=== PATIENT | female | born 1965 | race Caucasian/White ===

== ENCOUNTER 2016-07-26 22:07 | Emergency (ER) | payer MEDICAID ==
[2014-05-23 13:11] VITALS: BMI 36.7
[~2016-07-26 22:07] MED LIST: ACCUPRIL10 MG PO; ACCUPRIL5 MG; AMARYL1 MG PO; CIPRO500 MG PO; ECOTRIN325 MG PO; FLAGYL500 MG PO; FLOVENT HFA 11012 GM INH; GLUCOPHAGE500 MG PO; GLUCOTROL 5 MG T5 MG PO; IMDUR30 MG PO; IPRAT-ALBUT 0.5-3 ML UPD; NEURONTIN600 MG PO; PHENERGAN25 M1 PO; PROAIR HFA8.5 GM INH; PROVENTIL HFA6.7 GM INH; REGLAN10 MG PO; TENORMIN50 MG PO; ULTRAM50 MG PO; VIBRAMYCIN 100100 MG PO
== END 2016-07-27 00:38 | disposition home or self-care (01) ==
LOC: D.ER 22:07
DX: S80.12XA Contusion of left lower leg, initial encounter (principal); W19.XXXA Unspecified fall, initial encounter; Y93.89 Activity, other specified; Y92.019 Unspecified place in single-family (private) house as the place of occurrence of the external cause; S93.402A Sprain of unspecified ligament of left ankle, initial encounter; J44.9 Chronic obstructive pulmonary disease, unspecified; I10 Essential (primary) hypertension; E83.42 Hypomagnesemia; E83.39 Other disorders of phosphorus metabolism; E11.9 Type 2 diabetes mellitus without complications; F17.200 Nicotine dependence, unspecified, uncomplicated

== ENCOUNTER → 2017-03-27 13:51 | Outpatient (CLI) | payer MEDICAID ==
[2014-05-23 13:11] VITALS: BMI 36.7
[2017-03-30 10:00] LABS: BASOPHILS 0.5 % (0-2); EOSINOPHILS 2.6 % (0-7); HEMATOCRIT 46.8 % (36.0-48.0); HEMOGLOBIN 15.4 g/dL (12-16); IMMATURE GRANULOCYTES 0.1 % (0-5); LYMPHOCYTES 36.5 % (15-50); MCH 29.7 pg (26.0-34.0); MCHC 32.9 g/dL (31.0-37.0); MCV 90.3 fL (80.0-100.0); MEAN PLATELET VOLUME 10.3 fL (7.4-10.4); NEUTROPHILS 52.3 % (40-80); PLATELET COUNT 241 10x3/uL (130-400); RBC 5.18 10x6/uL (4.00-5.40); RDW 13.7 % (11.5-14.5); WBC 8.7 10x3/uL (4.8-10.8)
[2017-03-30 10:07] LABS: CREATININE - URINE 93.2 mg/dL (30-125); PROTEIN - 24HR URINE 65 mg/24hr (0-149.1)
[2017-03-30 10:12] LABS: CALC OSMOLALITY 285 mosm/kg (275-300); CALCIUM 9.5 mg/dL (8.5-10.1); CARBON DIOXIDE 27.2 mmol/L (21.0-32.0); CHLORIDE - SERUM 102 mmol/L (98-107); CREATININE - SERUM 0.8 mg/dL (0.6-1.3); POTASSIUM - SERUM 3.7 mmol/L (3.5-5.1); SODIUM 140 mmol/L (136-145); UREA NITROGEN 15 mg/dL (7-18); eGFR NON AFRICAN AMERICAN 80 mL/min (90-120)
[2017-03-30 10:19] LABS: CREATININE - SERUM 0.8 mg/dL (0.6-1.3); CREATININE CLEARANCE 58 ml/min (78-116); GLUCOSE 198 mg/dL (74-106)
== END | disposition home or self-care (01) ==
LOC: D.LAB 10:00
PROVIDERS: Internal Medicine Nephrology
DX: N18.9 Chronic kidney disease, unspecified (principal); R80.9 Proteinuria, unspecified

== ENCOUNTER → 2018-03-29 13:37 | Outpatient (CLI) | payer MEDICAID ==
[2014-05-23 13:11] VITALS: BMI 36.7
[2018-03-29 14:15] LABS: BASOPHILS 0.3 % (0-2); EOSINOPHILS 0.8 % (0-7); IMMATURE GRANULOCYTES 0.4 % (0-5); LYMPHOCYTES 23.7 % (15-50); MCH 29.9 pg (26.0-34.0); MCV 87.9 fL (80.0-100.0); MEAN PLATELET VOLUME 10.8 fL (7.4-10.4); MONOCYTES 6.3 % (2-11); NEUTROPHILS 68.5 % (40-80); PLATELET COUNT 244 10x3/uL (130-400); RBC 5.35 10x6/uL (4.00-5.40); RDW 13.7 % (11.5-14.5); WBC 15.8 10x3/uL (4.8-10.8)
[2018-03-29 14:24] LABS: CALC OSMOLALITY 281 mosm/kg (275-300); CALCIUM 9.3 mg/dL (8.5-10.1); CHLORIDE - SERUM 103 mmol/L (98-107); CREATININE - SERUM 0.7 mg/dL (0.6-1.3); POTASSIUM - SERUM 3.7 mmol/L (3.5-5.1); SODIUM 141 mmol/L (136-145); UREA NITROGEN 12 mg/dL (7-18); eGFR NON AFRICAN AMERICAN > 90 mL/min (90-120)
[2018-03-29 14:25] LABS: GLUCOSE 119 mg/dL (74-106)
[2018-03-29 14:32] LABS: CREATININE - URINE 139.8 mg/dL (30-125); PRO/CRE RATIO URINE 0.3 mg/g; PROTEIN - URINE 39.2 mg/dL (0.0-11.9)
[2018-03-29 14:50] LABS: APPEARANCE CLOUDY (CLEAR); COLOR YELLOW (YELLOW); NITRITE POSITIVE (NEGATIVE)
[2018-03-29 14:51] LABS: BILIRUBIN NEGATIVE (NEGATIVE); GLUCOSE NEGATIVE (NEGATIVE); KETONE NEGATIVE (NEGATIVE); PROTEIN 1+ mg/dL (NEGATIVE); UROBILINOGEN NORMAL (NORMAL)
[2018-03-29 14:52] LABS: BACTERIA MANY /hpf (NONE SEEN); RED CELLS - URINE 0-5 /hpf (0-5)
[2018-03-29 16:23] LABS: ALKALINE PHOSPHATASE 102 U/L (46-116); ALT (SGPT) 66 U/L (10-68); PROTEIN - SERUM 8.6 g/dL (6.4-8.2)
== END | disposition home or self-care (01) ==
LOC: D.LAB 13:37
DX: N18.9 Chronic kidney disease, unspecified (principal); R80.9 Proteinuria, unspecified; I10 Essential (primary) hypertension

== ENCOUNTER 2018-05-22 20:07 | Inpatient (IN) | payer MEDICAID ==
[~2018-05-22] VITALS: Ht 165.1 cm; Wt 103.4 kg
--- NOTE | ~2018-05-22 | HEMODYNAMI ---
PATIENT:MOHIT LEIVA MEDICAL RECORD: [id number] : 63 LOCATION:[facility] D.[address] [id number] ADMISSION DATE: 05/22/18 Generatedon:05/23/201816:51 Patient name: MOHIT LEIVA Patient #: [id number] SSN: DO B: 1965 Date of study: 05/23/2018 Page: Of Hemodynamic Procedure Report Patient Data Patient Demographics Procedure consent was obtained First Name: MOHIT Gender: Female Last Name: CALI : 1965 [facility] Initial: MACARIO Age: 52 year(s) Patient #: [id number] Race: Unknown Additional ID: [id number] Contact details [address]: [address] [place] [address] [address] LELE [place] State: [place] City: [place] Zip code: [address] Past Medical History Allergies Allergen Reaction Date Comments Reported Other allergy 05/23/2018 PCN,EGGS Admission Admission Data Admission Date: 05/22/2018 Admission Time: 22:40 Admit Source: Other Room #: D.2122 Lab Results Lab Result Date: 05/23/2018 Lab Result Time: 8:40 Biochemistry Name Units Result Min Max BUN mg/dl 10 --(-*--)-- 7 18 Creatinine mg/dl 0.9 --(-*--)-- 0.6 1.3 CBC Name Units Result Min Max Hematocrit % 44.4 --(*---)-- 42 54 Hemoglobin g/dl 15.1 --(-*--)-- 13.5 17.5 Procedure Procedure Types Cath Procedure Diagnostic Procedure LHC LHC w/Coronaries Sedation Charges Moderate Sedation up to 30 minutes PCI Procedure PTCA PTCA Initial Procedure Description Procedure Date Procedure Date: 05/23/2018 Procedure Start Time: 16:13 Procedure End Time: 16:46 Procedure Staff Name Function Brandon Saxena MD Performing Physician Todd Monsivais RT Monitor Herrera Santos RT Scrub Leigh Garcia RN Nurse Procedure Data Cath Procedure Fluoroscopy Diagnostic fluoroscopy Total fluoroscopy Time: 7.2 time: 7.2 min min Diagnostic fluoroscopy Total fluoroscopy dose: dose: 1167 mGy 1167 mGy Contrast Material Contrast Material Type Amount (ml) Isovue 300 135 Entry Location Entry Primary Successful Side Size Upsize Upsize Entry Closure Succes sful Closure Location (Fr) 1 (Fr) 2 (Fr) Remarks Device Remarks Femoral Right 5 Fr 6 Fr Exoseal artery Short Estimated blood loss: 10 ml Diagnostic catheters Device Type Used For End Catheter Placement MULTIPACK JL 4.0 5Fr Procedure catheter MULTIPACK 3DRC 5Fr Procedure catheter MULTIPACK Pigtail 5 Fr Procedure catheter Procedure Complications No complications Procedure Medications Medication Administration Route Dosage 0.9% NaCl I.V. 100 ml/hr Oxygen etCO2 Nasal cannula 2 l/min Lidocaine 2% added to field 20 Heparin Flush Bag added to field 2 bags (1000units/500ml NS) Versed I.V. 2 mg Fentanyl I.V. 50 mcg Versed I.V. 2 mg Fentanyl I.V. 50 mcg Heparin Bolus I.V. 68751 units Versed I.V. 2 mg Nitroglycerin IC/IA I.C. 100 mcg Plavix P.O. 600 mg Hemodynamics Rest HGB: 15.1 (g/dl) Heart Rate: 79 (bpm) Pressure Samples Time Site Value (mmHg) Purpose Heart Use Rate(bpm) 16:21 LV 159/-1,20 Snapshot 82 Gradients Valve Time Site Site Mean SEP/DFP Peak To Heart Use 1 2 (mmHg) (sec/min) Peak Rate (mmHg) (bpm) Aortic 16:22 LV AO 59 Snapshots Pre Cath Intra NCS Post Cath Vital Signs Time Heart Resp SPO2 etCO2 NIBP (mmHg) Rhythm Pain Sedation Rate (ipm) (%) (mmHg) Status Level (bpm) 15:57:16 66 14 98 29 225/116(165) NSR 0 (11) 10(A) , No pain 16:02:11 68 14 100 29.2 206/103(174) NSR 0 (11) 10(A) , No pain 16:06:56 76 11 97 11.9 180/101(149) NSR 0 (11) 10(A) , No pain 16:11:41 72 18 96 27.6 172/99(124) NSR 0 (11) 10(A) , No pain 16:16:25 69 12 96 39.6 169/92(128) NSR 0 (11) 10(A) , No pain 16:21:08 74 10 95 43.4 182/90(135) NSR 0 (11) 9(A) , No pain 16:25:53 78 10 96 44.8 169/88(133) NSR 0 (11) 9(A) , No pain 16:30:27 66 10 95 45.6 155/88(135) NSR 0 (11) 9(A) , No pain 16:35:04 86 11 95 48.6 174/93(139) NSR 0 (11) 9(A) , No pain 16:39:49 84 13 95 48.6 187/94(140) NSR 0 (11) 9(A) , No pain 16:44:25 87 12 97 47 172/87(145) NSR 0 (11) 10(A) , No pain Medications Time Medication Route Dose Verified Delivered Reason Notes Effectiveness by by 15:54:20 0.9% NaCl I.V. 100 Brandon Leigh used for ml/hr Hemanth Garcia ekg tech 15:54:26 Oxygen etCO2 2 Brandon Leigh used for Nasal l/min Hemanth Garcia procedure cannula RN 15:54:32 Lidocaine 2% added 20ml Brandon Brandon for local to vial Hemanth Saxena MD anesthetic field 15:54:39 Heparin Flush added 2 Brandon Brandon used for Bag to bags Hemanth Saxena MD procedure (1000units/500ml field NS) 16:05:12 Versed I.V. 2 mg Brandon Leigh for sedation Hemanth Garcia RN 16:05:21 Fentanyl I.V. 50 Brandon Leigh for sedation mcg Hemanth Garcia RN 16:12:11 Versed I.V. 2 mg Brandon Leigh for sedation Hemanth Garcia RN 16:12:24 Fentanyl I.V. 50 Brandon Leigh for sedation mcg Hemanth Garcia RN 16:17:53 Versed I.V. 2 mg Brandon Leigh for sedation Hemanth Garcia RN 16:27:34 Heparin [place]us [place].V. 10256 Brandon Leigh for units Hemanth arevalo RN 16:40:41 Nitroglycerin I.C. 100 Brandon Brandon for IC/IA mcg Hemanth yousif 16:51:20 Plavix P.O. 600 Brandon Abraham for mg Hemanth Garcia antiplatelet RN therapy Procedure Log Time Note 15:23:39 Admit Source: Other 15:28:37 Diagnostic Cath status Elective 15:28:38 Herrera Santos RT(R) sent for patient. Start room use. 15:28:39 Time tracking: Regular hours (M-F 7:00 - 5:00) 15:28:41 Plan of Care:Hemodynamics will remain stable., Cardiac rhythm will remain stable., Comfort level will be maintained., Respiratory function will remain adequate., Patient/ family verbilizes understanding of procedure., Procedure tolerated without complication., Recovers from procedure without complications.. 15:28:55 H&P Date Dictated: 05/22/2018 Within 30 days and on chart.. 15:30:50 Lab Result : Hemoglobin 15.1 g/dl 15:30:50 Lab Result : Hematocrit 44.4 % 15:30:50 Lab Result : BUN 10 mg/dl 15:30:50 Lab Result : Creatinine 0.9 mg/dl 15:30:53 Lab results completed and on chart. 15:46:45 Warm blankets applied, and khari hugger turned on for patient comfort. 15:46:45 Patient received from Med II to CCL 1 Alert and oriented. Tansferred to table in Supine position. 15:46:46 Correct patient and procedure confirmed by team. 15:46:47 Signed procedure consent form obtained from patient. 15:46:48 Pre-op teaching completed and patient verbalized understanding. 15:46:48 Pre-procedure instructions explained to patient. 15:46:49 Family in patients room. 15:46:51 Patient NPO since Midnight. 15:54:08 Vital chart was started 15:54:20 0.9% NaCl 100 ml/hr I.V. was administered by Leigh Garcia RN; used for procedure; 15:54:26 Oxygen 2 l/min etCO2 Nasal cannula was administered by Leigh Garcia RN; used for procedure; 15:54:32 Lidocaine 2% 20ml vial added to field was administered by Brandon Saxena MD; for local anesthetic; 15:54:39 Heparin Flush Bag (1000units/500ml NS) 2 bags added to field was administered by Brandon Saxena MD; used for procedure; 16:03:43 Patient allergic to Other allergyPCN,EGGS 16:03:45 Is the patient allergic to Iodine/contrast media? No. 16:03:46 Is patient on blood thinner?No 16:03:47 Patient diabetic? No. 16:03:49 Previous problem with sedation/anesthesia? No ? 16:03:50 Snore? Yes 16:03:51 Sleep apnea? Yes 16:03:52 Opens mouth fully? Yes 16:03:52 Deviated septum? No 16:03:53 Sticks out tongue? Yes 16:03:58 Airway obstruction? Yes COPD\ 16:04:03 Dentures? Yes OUT 16:04:06 Pre procedure: right dorsailis pedis pulse 2+ Normal; easily identifiable; not easily obliterated 16:04:07 Patient pain scale 0/10 ?. 16:04:13 IV patent on arrival in right wrist with 0.9% NaCl at O. 16:04:18 Right groin area was prepped with chlora-prep and draped in sterile fashion 16:04:20 Sharps counted by scrub and verified by R.N. 16:04:20 Alarms reviewed by R. N. 16:04:22 Use device set Femoral Dx 16:04:23 ACIST Syringe (12853) opened to sterile field. 16:04:24 Medline Cath Pack ([id number]) opened to sterile field. 16:04:24 Bag Decanter (2002S) opened to sterile field. 16:04:27 ACIST Hand Control (13808) opened to sterile field. 16:04:28 Tegaderm 4 x 4 (1626W) opened to sterile field. 16:04:28 ACIST Manifold (61585) opened to sterile field. 16:04:29 SHEATH 5FR [place] (NMB830) opened to sterile field. 16:04:31 DIAGNOSTIC WIRE .035 260cm J wire (978250) opened to sterile field. 16:04:31 DIAGNOSTIC Multipack 5Fr catheter set (BI6305) opened to sterile field. 16:04:35 Baseline sample Acquired. 16:04:38 Rhythm: sinus rhythm 16:04:39 Full Disclosure recording started 16:04:43 Physician arrived 16:04:54 Final Timeout: patient, procedure, and site verified with staff and physician. All members of the team are in agreement. 16:04:54 --------ALL STOP TIME OUT------ 16:04:55 Right groin site verified by team. 16:04:58 Physical assessment completed. ASA score P 2 - A patient with mild systemic disease as per Ethan Tang MD. 16:05:03 Sedation plan: IV Moderate Sedation Medication:Versed, Fentanyl 16:05:12 Versed 2 mg I.V. was administered by Leigh Garcia RN; for sedation; 16:05:21 Fentanyl 50 mcg I.V. was administered by Leigh Garcia RN; for sedation; 16:06:52 Zero performed for pressure channel P1 16:12:11 Versed 2 mg I.V. was administered by Leigh Garcia RN; for sedation; 16:12:24 Fentanyl 50 mcg I.V. was administered by Leigh Garcia RN; for sedation; 16:13:02 Procedure started. 16:13:06 Local anesthetic to right femoral artery with Lidocaine 2% by Brandon Saxena MD.INITIAL ACCESS ONLY 16:14:48 A 5 Fr sheath was inserted into the Right Femoral artery 16:15:56 A MULTIPACK JL 4.0 5Fr catheter was advanced over the wire and used for Procedure. 16:16:26 LCA angiography performed. 16:17:53 Versed 2 mg I.V. was administered by Leigh Garcia RN; for sedation; 16:18:51 Catheter exchanged over wire. 16:18:56 A MULTIPACK 3DRC 5Fr catheter was advanced over the wire and used for Procedure. 16:19:21 RCA angiography performed. 16:20:02 Catheter exchanged over wire. 16:20:18 A MULTIPACK Pigtail 5 Fr catheter was advanced over the wire and used for Procedure. 16:21:34 LV gram done using PANDEY 16:21:37 Injector settings: Ml/sec: 10, Volume: 20, 16:21:42 EF : 60 % 16:21:43 LV hemodynamics recorded. 16:21:53 Catheter removed. 16:22:11 TUBING High Pressure Extension Tubing (Hemanth) (US1007K) opened to sterile field. 16:22:12 INFLATOR Merit BasixCompak (LZ0621) opened to sterile field. 16:22:12 BMW 300cm Logan 2 J wire (6910911P) opened to sterile field. 16:22:13 SHEATH 6FR [place] (LGA381) opened to sterile field. 16:23:35 Sheath upsized to a 6 Fr Short. 16:23:43 GUIDE 6FR AR 1.0 catheter (GT3EO80) opened to sterile field. 16:27:34 Heparin Bolus 24934 units I.V. was administered by Leigh Garcia RN; for anticoagulation; 16:28:08 6 Fr AR 1 guide catheter was inserted over the wire 16:28:19 BMW wire advanced. 16:28:20 Wire advanced across lesion. 16:30:19 Inflate balloon Inflation number: 1 A EMERGE OTW 2.5 x 20 balloon ([id number]) was prepped and advanced across the Mid RCA, then inflated to 12 DANAY for 0:10 (min:sec). 16:30:47 Inflation number: 2 The EMERGE OTW 2.5 x 20 balloon ([id number]) was reinflated across the Mid RCA, to 12 DANAY for 0:10 (min:sec). 16:32:25 Inflation number: 3 The EMERGE OTW 2.5 x 20 balloon ([id number]) was reinflated across the Mid RCA, to 15 DANAY for 0:10 (min:sec). 16:34:12 Balloon removed over the wire. 16:40:41 Nitroglycerin IC/IA 100 mcg I.C. was administered by Brandon Saxena MD; for vasodilation; 16:42:20 Inflate balloon Inflation number: 4 A EUPHORA 3.0 x 20 Balloon ([id number]) was prepped and advanced across the Mid RCA, then inflated to 14 DANAY for 0:10 (min:sec). 16:43:23 Balloon removed over the wire. 16:43:25 Wire removed. 16:43:26 Guide catheter removed. 16:43:35 EXOSEAL 6Fr (EX600) opened to sterile field. 16:43:47 Sheath removed intact; hemostasis achieved with Exoseal to the Right Femoral artery. 16:43:49 Procedure ended.(Physican Out) 16:44:59 Fluoroscopy time 07.20 minutes. 16:45:03 Fluoroscopy dose: 1167 mGy 16:45:03 Flurop Dose total: 1167 16:45:07 Contrast amount:Isovue 300 135ml. 16:45:09 Sharps counted by scrub and verified by R.N. 16:45:25 Insertion/operative site no bleeding no hematoma. 16:45:27 Post-op/insertion site Right Femoral artery dressed using a 4 x 4 and Tegaderm. 16:45:30 Post right femoral artery:stable, soft, clean and dry 16:45:42 Post Procedure Pulses reassessed and unchanged 16:45:44 Post-procedure physical assessment completed. ASA score P 2 - A patient with mild systemic disease as per Brandon Saxena MD. 16:45:50 Post procedure rhythm: unchanged. 16:45:53 Estimated blood loss: 10 ml 16:45:54 Patient needs reinforcement of post procedure teaching. 16:45:54 Post procedure instruction explained to patient.Patient verbalizes understanding. 16:46:09 Procedure type changed to Cath procedure, Diagnostic procedure, LHC, LHC w/Coronaries, Sedation Charges, Moderate Sedation up to 30 minutes, PCI procedure, PTCA, PTCA Initial 16:46:27 Procedure and supply charges have been captured, reviewed, submitted and are correct. 16:46:29 Procedure Complication : No complications 16:46:31 Vital chart was stopped 16:46:32 See physician's report for complete and final results. 16:46:51 Report given to PCU. 16:46:54 Patient transfered to PCU with Stretcher. 16:46:56 Full Disclosure recording stopped 16:46:56 Procedure ended. 16:46:59 End room use (Document Last) 16:51:20 Plavix 600 mg P.O. was administered by Leigh Garcia RN; for antiplatelet therapy; Intervention Summary Intervention Notes Time ActionType Lesion and Equipment Action# Pressure Duration Attributes Used 16:30:19 Inflate Mid RCA EMERGE OTW 1 12 00:10 balloon 2.5 x 20 balloon ([id number]) 16:30:47 Reinflate Mid RCA EMERGE OTW 2 12 00:10 balloon 2.5 x 20 balloon ([id number]) 16:32:25 Reinflate Mid RCA EMERGE OTW 3 15 00:10 balloon 2.5 x 20 balloon ([id number]) 16:42:20 Inflate Mid RCA EUPHORA 3.0 4 14 00:10 balloon x 20 Balloon ([id number]) Device Usage Item Name Manufacture Quantity Catalog Number Hospital Part Current Min imal Lot# / Charge Number Stock Stock Serial# Code ACIST Acist 1 45640 517927 814509 396436 20 Syringe Medical (79182) Systems Inc Bag Decanter Microtek 1 2001S 415109 83055 576583 5 (2001S) Medical Inc. Medline Cath Medline 1 [id number] 097934 62634 131671 5 Pack ([id number]) ACIST Hand Acist 1 56157 051203 188701 425858 5 Control Medical (63959) Systems Inc ACIST Acist 1 94022 480917 592192 281798 5 Manifold Medical (80445) Systems Inc Tegaderm 4 x 3M 1 1626W 267479 468981 305281 5 4 (1626W) SHEATH 5FR Terumo 1 QEK731 215816 279237 560305 5 [place] (TCY708) DIAGNOSTIC Cardinal 1 BD3719 770520 33953 493171 30 Multipack Health 5Fr catheter set (QR6586) DIAGNOSTIC St [place] 1 684851 511676 098989 793241 30 WIRE .035 260cm J wire (747955) MULTIPACK JL Cardinal 1 196826 5 4.0 5Fr Health catheter MULTIPACK Cardinal 1 430573 5 3DRC 5Fr Health catheter MULTIPACK Cardinal 1 431843 5 Pigtail 5 Fr Health catheter TUBING High Merit 1 CD2747F 852487 01405 581064 10 Pressure Medical Extension Tubing (Saxena) (AL6152T) BMW 300cm Morton 1 [id number] 746866 651442 702018 5 Logan 2 Vascular J wire (7878181S) INFLATOR Merit 1 CZ1000 349715 744307 572368 15 [facility] Medical BasixCompak (YM6466) SHEATH 6FR Terumo 1 RAB739 840708 453657 050234 40 [place] (LQT774) GUIDE 6FR AR Medtronic 1 TS7AX38 661305 19389 547486 1 1.0 catheter (QE7OD10) EMERGE OTW [place] 1 [id number] 681894 934131 776038 5 [id number] 2.5 x 20 Scientific balloon ([id number]) EXOSEAL 6Fr Cardinal 1 EX600 046664 853187 460724 10 (EX600) Health EUKeepstream 3.0 Medtronic 1 [id number] 288250 977354 190434 5 [id number] x 20 Balloon ([id number]) Signature Audit [place] Stage Time Signature Unsigned Intra-Procedure 05/23/2018 Todd Monsivais RT(R) 4:50:26 PM RT(R) 05/23/2018 4:51:06 PM Intra-Procedure 05/23/2018 Todd Monsivais 4:51:31 PM RT(R) Signatures Monitor : Todd Monsivais RT Signature : Date : Time : [facility] [address] [place] [address]
--- NOTE | ~2018-05-22 | MORECARE ---
CASE MANAGEMENT DISCHARGE SUMMARY PATIENT: MOHIT LEIVA UNIT: [id number] ADM DATE: 05/22/18 AGE: 52 : 63 SEX: F ROOM/BED: D.2121 AUTHOR: CESAR GALINDO PHYSICIAN: REFERRING PHYSICIAN: KLEBER KIRBY MD DATE OF SERVICE: 05/25/18 Discharge Plan Patient Name: MOHIT LEIVA Facility: [facility]:[place] : 1965 Planned Disposition: Home Anticipated Discharge Date: 05/24/18 Discharge Date: 05/24/2018 Expected LOS: 2 Initial Reviewer: [email or web address] Initial Review Date: 05/25/2018 Generated: 05/25/18 11:50 am Patient Name: MOHIT LEIVA Page [id number] at 1050 All edits/amendments must be made on the electronic document DICTATION DATE: 05/25/18 1049 TECTONOPHYSICIST: DM 05/25/18 1049 RPT#: [id number] DC DATE:05/24/18 STATUS: DIS IN [facility] [address] [place] [address] END OF REPORT
--- NOTE | ~2018-05-22 | HP ---
PATIENT: MOHIT LEIVA MEDICAL RECORD: [id number] ACCOUNT: [id number] LOCATION:[address] : [birth year] ADMISSION DATE: 05/22/18 PCP: No PCP HISTORY AND PHYSICAL EXAMINATION DATE OF ADMISSION: 05/22/2018 CHIEF COMPLAINT: Chest pain and shortness of breath. HISTORY OF PRESENT ILLNESS: This is a 52-year-old white female whose primary care provider is in [place]. She has a history of coronary artery disease, diet-controlled diabetes, and COPD. She presented to the Emergency Room complaining of chest pain or shortness of breath started last night. She had cough, but denies much fever. She had pain that ran down both arms, which is similar to when she has had coronary artery disease. She took 3 nitro at home without any relief. In the ER, her white count was a little elevated at 11,100. Her basic metabolic panel was okay. D-dimer was elevated at 1.28. Troponin was less than 0.017. ProBNP was only 119. Chest x-ray did show right infrahilar airspace disease. She is admitted for further evaluation. PAST MEDICAL AND SURGICAL HISTORY: Coronary artery disease, COPD, diet-controlled diabetes. She is on disability and when asked what is her disability she said her eyes, her lungs, and diabetes. 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 PAST SURGICAL HISTORY: She had a coronary stent placed in [facility]. She has had a cornea transplant, colon resection, appendectomy, cholecystectomy, hysterectomy. ALLERGIES: EGGS AND PENICILLIN. HOME MEDICATIONS: Phenergan as needed for nausea or vomiting, Zovirax 400 mg once a day, albuterol HFA q.4-6 hours p.r.n. wheeze, aspirin 325 mg a day, Lyrica 150 mg at bedtime, tramadol 100 mg q.8 hours p.r.n. pain, lisinopril 20 mg a day, metoprolol 25 mg a day. She is also on amlodipine 10 mg once a day. HABITS: She continues to smoke. States she has tried to cut down and quit. SOCIAL HISTORY: She lives alone with a small dog. She is disabled. FAMILY HISTORY: Father with history of heart disease, diabetes, and cancer. Sibling with cancer and hypertension. REVIEW OF SYSTEMS: GENERAL: No major weight changes. HEENT: No particular sinus or allergy problems. RESPIRATORY: She has a history of COPD with long history of smoking. CARDIAC: History of coronary artery disease with stent placed in [facility] in [place]. GASTROINTESTINAL: He has had some heartburn. GENITOURINARY: No significant problems there. MUSCULOSKELETAL: She has a few joint aches and pains. NEUROLOGIC: No seizures. No migraines. PSYCHIATRIC: She has no depression or anxiety. HISTORY AND PHYSICAL [id number] MOHIT LEIVA PHYSICAL EXAMINATION: VITAL SIGNS: Temperature 97.7, pulse 68, respirations 22, blood pressure 175/89, O2 sat 95%. GENERAL: She is awake and alert, does not appear in acute distress. She is wearing dark glasses in a darkened hospital room. SKIN: Warm and dry. HEENT: Grossly within normal limits. NECK: Supple. No bruit. HEART: Regular rate and rhythm without murmur. LUNGS: Fairly clear, few rales in the bases bilaterally. ABDOMEN: Soft. EXTREMITIES: No edema. LABORATORY DATA: CBC with a white count of 11,100, hemoglobin 15.1, hematocrit 44.4. Basic metabolic panel is okay. Liver functions are okay. Magnesium barely low at 1.7. D-dimer elevated at 1.28, troponin less than 0.017. ProBNP 119. IMAGING: Chest x-ray shows right infrahilar airspace disease. A V/Q perfusion scan shows a normal exam. No defects to suggest PE. ASSESSMENT: 1. Right lower lobe pneumonia. 2. Chest pain in a patient with known history of coronary artery disease. 3. Diet-controlled diabetes. 4. History of chronic obstructive pulmonary disease. PLAN: She is being treated for her pneumonia. Cardiology is consulted. Other tests or procedures as warranted. TRANSINT:[id number] Voice Confirmation ID: [id number] DOCUMENT ID: [id number] KLEBER KIRBY MD at 1107 CC: [id number] DICTATION DATE: 05/23/189 BRICK PAVER: 05/23/18 2348 ADM IN [place] [address] [place] [address]
[2018-05-22] MEDS ORDERED: METOPROLOL TART25 MG PO (20:18)
[2018-05-22] MEDS ORDERED: ZOVIRAX400 MG (20:18)
[2018-05-22] MEDS ORDERED: ZESTRIL20 MG PO (20:18)
[2018-05-22] MEDS ORDERED: LYRICA150 MG PO (20:19)
[2018-05-22 20:44] LABS: BASOPHILS 0.3 % (0-2); EOSINOPHILS 2.3 % (0-7); HEMATOCRIT 44.4 % (36.0-48.0); HEMOGLOBIN 15.1 g/dL (12-16); IMMATURE GRANULOCYTES 0.3 % (0-5); LYMPHOCYTES 24.6 % (15-50); MCH 29.8 pg (26.0-34.0); MCV 87.6 fL (80.0-100.0); MONOCYTES 7.6 % (2-11); NEUTROPHILS 64.9 % (40-80); PLATELET COUNT 226 10x3/uL (130-400); RBC 5.07 10x6/uL (4.00-5.40); RDW 13.9 % (11.5-14.5); WBC 11.1 10x3/uL (4.8-10.8)
[2018-05-22 20:57] LABS: ALBUMIN 3.4 g/dL (3.4-5.0); ALKALINE PHOSPHATASE 100 U/L (46-116); ALT (SGPT) 37 U/L (10-68); CALC OSMOLALITY 279 mosm/kg (275-300); CALCIUM 8.8 mg/dL (8.5-10.1); CARBON DIOXIDE 26.6 mmol/L (21.0-32.0); CHLORIDE - SERUM 104 mmol/L (98-107); CREATININE - SERUM 0.9 mg/dL (0.6-1.3); GLUCOSE 132 mg/dL (74-106); POTASSIUM - SERUM 3.4 mmol/L (3.5-5.1); PROTEIN - SERUM 7.9 g/dL (6.4-8.2); SODIUM 140 mmol/L (136-145); UREA NITROGEN 10 mg/dL (7-18); eGFR NON AFRICAN AMERICAN 69 mL/min (90-120)
[2018-05-22 21:25] LABS: CREATINE KINASE 112 UL (21-215); MAGNESIUM - SERUM 1.7 mg/dL (1.8-2.4); PRO BNP 119 pg/mL (0-125); TROPONIN-I < 0.017 ng/mL (0.000-0.060)
[2018-05-22 21:29] LABS: CKMB 0.6 U/L (0.0-3.6)
[2018-05-22 21:37] VITALS: BP 136/81
[2018-05-22 21:52] VITALS: BP 169/89
[2018-05-22 23:37] VITALS: BP 173/78
[2018-05-23] VITALS (7 sets, daily range): BP systolic 127–182; BP diastolic 76–97; Ht 165.1 cm; Wt 103.4 kg
[2018-05-23 04:48] LABS: BASOPHILS 0.2 % (0-2); EOSINOPHILS 2.1 % (0-7); HEMATOCRIT 42.1 % (36.0-48.0); HEMOGLOBIN 14.3 g/dL (12-16); IMMATURE GRANULOCYTES 0.2 % (0-5); LYMPHOCYTES 22.3 % (15-50); MCH 29.7 pg (26.0-34.0); MCV 87.3 fL (80.0-100.0); MEAN PLATELET VOLUME 10.3 fL (7.4-10.4); NEUTROPHILS 67.2 % (40-80); PLATELET COUNT 224 10x3/uL (130-400); RBC 4.82 10x6/uL (4.00-5.40); WBC 10.2 10x3/uL (4.8-10.8)
[2018-05-23 05:14] LABS: ALBUMIN 3.2 g/dL (3.4-5.0); ALKALINE PHOSPHATASE 91 U/L (46-116); ALT (SGPT) 35 U/L (10-68); CALC OSMOLALITY 283 mosm/kg (275-300); CALCIUM 8.4 mg/dL (8.5-10.1); CARBON DIOXIDE 26.3 mmol/L (21.0-32.0); CHLORIDE - SERUM 105 mmol/L (98-107); CKMB 0.7 U/L (0.0-3.6); CREATINE KINASE 83 UL (21-215); CREATININE - SERUM 0.7 mg/dL (0.6-1.3); GLUCOSE 159 mg/dL (74-106); POTASSIUM - SERUM 3.2 mmol/L (3.5-5.1); PROTEIN - SERUM 7.5 g/dL (6.4-8.2); SODIUM 142 mmol/L (136-145); TROPONIN-I < 0.017 ng/mL (0.000-0.060); UREA NITROGEN 8 mg/dL (7-18); eGFR NON AFRICAN AMERICAN > 90 mL/min (90-120)
[2018-05-23] MEDS ORDERED: HYDROCHLOROTHIA25 MG PO (10:09)
[2018-05-23] MEDS ORDERED: NORVASC10 MG PO (10:09)
[2018-05-23] MEDS ORDERED: PRED FORTE5 ML LEFT EYE (10:10)
[2018-05-23] MEDS ORDERED: MOBIC7.5 MG PO (10:10)
[2018-05-23] MEDS ORDERED: ZOVIRAX800 MG PO (10:13)
[2018-05-24 02:01] VITALS: BP 121/66
[2018-05-24 05:42] VITALS: BP 146/76
[2018-05-24 07:43] VITALS: BP 123/69
[2018-05-24 11:44] VITALS: BP 120/64
[2018-05-24 15:21] VITALS: BP 155/69
[2018-05-24] MEDS ORDERED: PLAVIX75 MG PO (18:43)
[2018-05-24] MEDS ORDERED: LEVAQUIN750 MG PO (18:44)
== END 2018-05-24 21:14 | disposition home or self-care (01) | DRG 250 ==
LOC: D.ER 20:07 → D.M2 22:40
PROVIDERS: Family Medicine; Internal Medicine Cardiovascular Disease
PROC: B2111ZZ Fluoroscopy of Multiple Coronary Arteries using Low Osmolar Contrast (ICD-10-PCS; 2018-05-23)
PROC: B2151ZZ Fluoroscopy of Left Heart using Low Osmolar Contrast (ICD-10-PCS; 2018-05-23)
PROC: 02703ZZ Dilation of Coronary Artery, One Artery, Percutaneous Approach (ICD-10-PCS; principal; 2018-05-23 15:30)
PROC: 4A023N7 Measurement of Cardiac Sampling and Pressure, Left Heart, Percutaneous Approach (ICD-10-PCS; 2018-05-23 15:30)
DX: I25.110 Atherosclerotic heart disease of native coronary artery with unstable angina pectoris (principal); J18.1 Lobar pneumonia, unspecified organism; T82.855A Stenosis of coronary artery stent, initial encounter; J44.0 Chronic obstructive pulmonary disease with (acute) lower respiratory infection; Y83.8 Other surgical procedures as the cause of abnormal reaction of the patient, or of later complication, without mention of misadventure at the time of the procedure; I10 Essential (primary) hypertension; E11.9 Type 2 diabetes mellitus without complications; Z95.5 Presence of coronary angioplasty implant and graft